=== PATIENT | male | born 1950 | race Caucasian/White ===

== ENCOUNTER 2016-09-03 17:21 | Inpatient (IN) | payer MEDICARE ==
--- NOTE | 2016-09-03 17:38 | ED ---
General Adult HPI - General Chief complaint: Recheck/Abnormal Lab/Rx Stated complaint: Abnormal Labs Time Seen by Provider: 09/03/16 17:25 Source: EMS, RN notes reviewed Mode of arrival: EMS Limitations: no limitations - History of Present Illness Initial comments: This is a 66-year-old male who presents to the emergency department with a past medical history significant for anemia. Patient also states she's had some adenopathy in his chest before but they have yet been able to figure out what the cause is. Patient states she also has not been able to figure out the cause of his anemia. Patient comes in to [facility] today because he was feeling weak and nauseated. [facility] did some lab work on him and x-rays and found that he had increased lymphadenopathy and an increasing mass in his left upper lobe and they wanted him to be evaluated further down here by a flight engineer oncologist. Patient had blood work done at [facility] and that was sent with him. Patient currently is symptom free. He states as long as he stays still he is not short of breath and does not have any pain. - Related Data Allergies Allergy/AdvReac Type Severity Reaction Status Date / Time No Known Allergies Allergy Verified 09/03/16 17:31 Review of Systems ROS Statement: Those systems with pertinent positive or pertinent negative responses have been documented in the HPI. ROS Other: All systems not noted in ROS Statement are negative. Past Medical History Past Medical History: Atrial Fibrillation Additional Past Medical History / Comment(s): Pulmonary fibrosis, myelodysplastic syndrome, hemachromatosis. History of Any Multi-Drug Resistant Organisms: None Reported Additional Past Surgical History / Comment(s): Pacemaker 07/2016 Smoking Status: Never smoker Past Alcohol Use History: None Reported Past Drug Use History: None Reported General Exam - General Exam Comments Initial Comments: GENERAL: Patient is well-developed and well-nourished. Patient is nontoxic and well- hydrated and is in no acute distress. ENT: Neck is soft and supple. No significant lymphadenopathy is noted. Oropharynx is clear. Moist mucous membranes. Neck has full range of motion without eliciting any pain. EYES: The sclera were anicteric and conjunctiva were pink and moist. Extraocular movements were intact and pupils were equal round and reactive to light. Eyelids were unremarkable. PULMONARY: Unlabored respirations. Good breath sounds bilaterally. No audible rales rhonchi or wheezing was noted. CARDIOVASCULAR: There is a regular rate and rhythm without any murmurs gallops or rubs. ABDOMEN: Soft and nontender with normal bowel sounds. No palpable organomegaly was noted. There is no palpable pulsatile mass. SKIN: Skin appears pale NEUROLOGIC: Patient is alert and oriented x3. Cranial nerves II through XII are grossly intact. Motor and sensory are also intact. Normal speech, volume and content. Symmetrical smile. MUSCULOSKELETAL: Normal extremities with adequate strength and full range of motion. Minimal edema LYMPHATICS: No significant lymphadenopathy is noted PSYCHIATRIC: Normal psychiatric evaluation. Normal interpersonal interactions appears functionally intact in deals appropriately with others. No signs of depression. No signs of anxiety. Limitations: no limitations Course Vital Signs 09/03/16 17:25 Temperature 96.9 F L Pulse Rate 70 Respiratory 18 Rate Blood Pressure 130/76 O2 Sat by Pulse 98 Oximetry Disposition Clinical Impression: Mediastinal adenopathy, Mass of upper lobe of left lung, Anemia, Generalized weakness Disposition: ADMITTED IP TO THIS HOSP Referrals: Ortega Kuhn MD [Primary Care Provider] - 1-2 days Time of Disposition: 17:39
[2016-09-03] MEDS ORDERED: SODIUM CHLORIDE 0.9% 1,000 ML IV ONE (17:40)
[2016-09-03] MEDS ORDERED: MORPHINE SULFATE 2 MG/ML SYRINGE IVP PRN (19:42)
[2016-09-03] MEDS ORDERED: TEMAZEPAM 15 MG CAP PO PRN (20:32)
[2016-09-03] MEDS ORDERED: HYDROcodone/APAP 5-325MG 1 EACH TAB PO PRN (20:32)
--- NOTE | 2016-09-03 21:24 | XR ---
EXAMINATION TYPE: XR chest 1V portable DATE OF EXAM: 09/03/2016 9:15 PM COMPARISON: NONE HISTORY: Lymphoma. Chest pain TECHNIQUE: Single frontal view of the chest is obtained. FINDINGS: There is no focal air space opacity, pleural effusion, or pneumothorax seen. The cardiac silhouette mildly enlarged. Tortuosity of the ascending thoracic aorta contributes to mediastinal wid ening as this patient rotation. Dual lead left-sided cardiac device is present. The osseous structure s are intact. IMPRESSION: 1. No acute pulmonary process. 2. Superior mediastinal widening is likely attributable to a ascending thoracic aorta tortuosity/ecta colette and patient rotation. If there is clinical concern repeat chest radiograph with improved position ing could be performed.
[2016-09-03] MEDS: DIGOXIN 125 MCG TAB PO SCH (21:30)
[2016-09-04 07:36] LABS: Amorphous Sediment,Urine Rare /hpf; Appearance,Urine Turbid (Clear); Bilirubin,Urine 1+ (Negative); Glucose,Urine (UA) Trace (Negative); Ketones,Urine Negative (Negative); Leukocyte Esterase,Urine Trace (Negative); Mucus,Urine Rare /hpf; Nitrite,Urine Negative (Negative); PH, Urine 5.5 (5.0-8.0); Particle Count 55508; Protein,Urine 3+ (Negative); RBC,Urine 60 /hpf (0-5); Specific Gravity,Urine 1.017 (1.001-1.035); Squamous Epithelial Cell,Urine 1 /hpf (0-4); UA Billing (MACRO vs. MICRO) MICRO; Urobilinogen,Urine <2.0 mg/dL (<2.0); WBC,Urine 32 /hpf (0-5)
[2016-09-04] MEDS ORDERED: ARANESP IJ SCH ×2 (08:00→12:00)
[2016-09-04] MEDS: PANTOPRAZOLE 40 MG TABLET PO SCH (08:50)
[2016-09-04 09:00] LABS: Anisocytosis Moderate; Basophils % (A) 0 %; CH 27.9; CHCM 29.6; Eosinophils % (A) 0 %; HCT 27.9 % (39.0-53.0); HDW 3.25; HGB 8.4 gm/dL (13.0-17.5); Hypochromasia Marked; Luc # (Auto) 0.05; Luc % (Auto) 1; Lymphocytes # (A) 0.6 k/uL (1.0-4.8); Lymphocytes % (A) 10 %; MCH 28.1 pg (25.0-35.0); MCV 93.7 fL (80.0-100.0); Macrocytosis Slight; Mean Platelet Volume 8.1; Monocytes # (A) 0.2 k/uL (0-1.0); Monocytes % (A) 3 %; Neutrophils # (A) 5.1 k/uL (1.3-7.7); Neutrophils % (A) 86 %; RBC 2.98 m/uL (4.30-5.90); RDW 22.2 % (11.5-15.5); WBC 5.9 k/uL (3.8-10.6); WBC (Perox) 5.24
[2016-09-04 09:45] LABS: INR 4.7 (<1.1); Prothrombin Time 46.4 sec (9.0-12.0)
[2016-09-04 09:48] LABS: Calcium 7.6 mg/dL (8.4-10.2); Potassium 5.4 mmol/L (3.5-5.1); Total Bilirubin 0.7 mg/dL (0.2-1.3); Total Protein 7.3 g/dL (6.3-8.2)
[2016-09-04 10:26] VITALS: BMI 35.4
--- NOTE | 2016-09-04 10:37 | HP ---
DATE OF ADMISSION: Chief complaints are weakness, vomiting and chills. HISTORY OF PRESENT ILLNESS: This 66-year-old gentleman with a past medical history of multiple medical problems including atrial fibrillation, history of myelodysplastic syndrome, history of amiodarone and pulmonary toxicity and pulmonary fibrosis, which was diagnosed after a lung biopsy followed by Dr. Kuhn in the outpatient setting, was also seeing an oncologist in [place] for myelodysplastic syndrome. The patient was admitted recently to [facility] with multiple complications and limited lymphedema was suspected and also a right upper lobe shadow was suspected also, but patient continues to have fever and chills and also symptoms of tiredness and weakness. Patient was in [facility] and the [facility] CAT scan showed significant increase in the superior mediastinal adenopathy and no new nodular lesion in the lungs and the patient was directly transferred to [facility] for further evaluation and treatment apparently because there were no beds in [facility]. There is no history of fever, chills or rigors. There is no history of headache, loss of consciousness or seizures at this time. The patient has seen Dr. Siddiqui previously and was treated with steroids with significant improvement according to him. PAST MEDICAL HISTORY: History of atrial fibrillation, history of pulmonary fibrosis, myelodysplastic syndrome, hemochromatosis, history of pacemaker. Medications prior to admission include: 1. Aranesp 1 injection q.14 days. 2. Coumadin 2.5 mg daily. 3. Vitamin B 2000 mg subQ monthly. 4. Digoxin 125 mcg p.o. daily. Allergies are none. FAMILY HISTORY: No history of heart disease or strokes in the family. SOCIAL HISTORY: No history of smoking, no history of alcohol intake. REVIEW OF SYSTEMS: ENT: No diminishing hearing. No diminished vision. CARDIOVASCULAR: As mentioned earlier. RESPIRATORY: As mentioned earlier. GI: No nausea. : No dysuria. NERVOUS SYSTEM: No numbness or weakness. ALLERGY/IMMUNOLOGY: No asthma or hayfever. MUSCULOSKELETAL: As mentioned earlier. HEMATOLOGY: No history of anemia. ENDOCRINE: No history of diabetes or hypothyroidism. CONSTITUTIONAL: As mentioned earlier. DERMATOLOGY: Negative. RHEUMATOLOGY: Negative. PSYCHIATRY: As mentioned earlier. PHYSICAL EXAM: Patient is alert and oriented x3. Pulse 70, blood pressure 135/80, respirations 16, temperature is 97.3, pulse ox 100% on 2 L. HEENT: Conjunctive normal. NECK: No jugular venous distension. CARDIOVASCULAR: S1, S2, muffled. RESPIRATORY: Breath sounds diminished at the bases. A few scattered rhonchi, no crackles. Abdomen is soft, obese, nontender. No mass palpable. LEGS: No edema, no swelling. NERVOUS SYSTEM: Higher functions as mentioned earlier. Moves all 4 limbs, no focal motor deficits. LYMPHATICS: No lymph node enlargement in the neck, axillae or groin. SKIN: No ulcers, rash, bleeding. Labs are pending at this time. The last from [place] [facility] shows the EKG paced rhythm. hemoglobin is 8.2, and MCV is 90. Other labs noted. ASSESSMENT: 1. Increase in the superior mediastinal lymphadenopathy as well as right upper lobe lesions, rule out pneumonia or metastatic malignancy or lymphoma. 2. Urinary tract infection, possibly. 3. History of myelodysplastic syndrome. 4. Anemia secondary to myelodysplastic syndrome. 5. Atrial fibrillation, chronic, intermittent. 6. Status post pacemaker. 7. Coumadin monitoring. 8. Hemochromatosis. 9. 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 10. Leukopenia. 11. Obesity with a body mass index of 35.4. RECOMMENDATION AND DISCUSSION: In this 66-year-old gentleman who presented with multiple complex medical issues, will monitor the patient closely. Continue with the current medication and symptomatic treatment. Recommend repeat labs and we will recommend evaluation by Dr. Lorenz and as well as Dr. Siddiqui. Otherwise, we will continue to monitor for possible lung biopsy versus a bronchoscopy. The prognosis guarded because of multiple complex medical issues. Further recommendations to follow. Will also obtain the old records as well. See orders for details. Discussed with the family at length. A copy of this will be forwarded to Dr. Kuhn who is the primary physician. now. Etiology for increasing lymphadenopathy and the lung lesions are not clear at this time. MTDD
--- NOTE | 2016-09-04 11:12 | P.CNPUL ---
History of Present Illness Consult date: 09/04/16 Reason for consult: dyspnea History of present illness: 66-year-old male patient with known history of hemachromatosis and mild dysplastic syndrome and previous history of mediastinal lymphadenopathy who was hospitalized for nausea and generalized weakness. The patient also reported fatigue and some increased shortness of breath. Note that the patient has an oncologist and he was being treated by a program host oncologist the [facility]. No records are available regarding his previous diagnosis or evaluations and treatments and the patient and his are not aware of the details of previous treatments. In short, the patient has had history of hemachromatosis. He reports a history of Salmonella bacteremia back in March 2016 and he was treated appropriately. He was also noted to have mediastinal lymphadenopathy. Apparently series of CAT scans were done including CAT scans from 07/12/2011, 05/14/2016 and 09/03/2016. The most recent CAT scan that was done on 09/03/2016 showed significant progression of the mediastinal lymphadenopathy compared to the prior exams as well as interval development of bilateral pulmonary nodules that are somewhat larger in the left upper lobe lingular segment. This raises suspicion for lymphoma. Sarcoidosis felt to be less likely. Primary lung cancer is felt to be less likely. The patient has no cough or sputum production. He has some mild exertional dyspnea. No 70 DVTs or pulmonary embolism. No hemoptysis. No pleurisy. His blood work from [facility] indicated anemia with a hemoglobin of 8.2. The patient is on long-term articulation regarding chronic atrial fibrillation fibrillation and his INR is 4.7. He has also chronic renal failure with a creatinine of 2.4 at baseline. He is pulse oxing 98% on room air. Review of Systems 12 point review of system was done and the positive findings are almost above in history of present illness All systems: negative Constitutional: Denies chills, Denies fever Eyes: denies blurred vision, denies pain Ears, nose, mouth and throat: Denies headache, Denies sore throat Cardiovascular: Denies chest pain, Denies shortness of breath Respiratory: Reports dyspnea, Denies cough Gastrointestinal: Reports nausea, Reports vomiting, Denies abdominal pain, Denies diarrhea Musculoskeletal: Denies myalgias Integumentary: Denies pruritus, Denies rash Neurological: Denies numbness, Denies weakness Psychiatric: Denies anxiety, Denies depression Endocrine: Denies fatigue, Denies weight change Past Medical History Past Medical History: Atrial Fibrillation Additional Past Medical History / Comment(s): History of mediastinal lymphadenopathy, hemachromatosis, mild dysplastic syndrome, chronic atrial fibrillation, chronic renal failure, nephrolithiasis, cataracts, chronic anemia , 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 History of Any Multi-Drug Resistant Organisms: None Reported Additional Past Surgical History / Comment(s): Pacemaker 07/2016, rt knee arthrosocpy, lung bx Past Anesthesia/Blood Transfusion Reactions: No Reported Reaction Additional Past Anesthesia/Blood Transfusion Reaction / Comment(s): blood transfusion-no reaction Past Psychological History: No Psychological Hx Reported Smoking Status: Never smoker Past Alcohol Use History: None Reported Past Drug Use History: None Reported - Past Family History Mother Family Medical History: CVA/TIA Father Family Medical History: CVA/TIA Medications and Allergies Home Medications Medication Instructions Recorded Confirmed Type Aranesp (Unknown Dose) 1 injection IJ Q14D 09/03/16 09/03/16 History Cyanocobalamin [Vitamin B-12 1,000 mcg SQ QMONTH 09/03/16 09/03/16 History Injection] Digoxin [Digitek] 125 mcg PO DAILY 09/03/16 09/03/16 History Warfarin [Coumadin] 2.5 mg PO DAILY 09/03/16 09/03/16 History Allergies Allergy/AdvReac Type Severity Reaction Status Date / Time No Known Allergies Allergy Verified 09/03/16 18:09 Physical Exam Vitals: Vital Signs Temp Pulse Pulse Resp BP BP Pulse Ox 09/04/16 07:00 97.1 F L 71 16 149/85 100 09/03/16 21:40 97.3 F L 70 16 125/76 98 09/03/16 19:00 97.3 F L 70 16 135/80 100 09/03/16 18:19 96.8 F L 70 18 107/65 96 09/03/16 17:25 96.9 F L 70 18 130/76 98 Intake and Output 09/03/16 09/04/16 09/04/16 22:59 06:59 14:59 Intake Total 450 Balance 450 Intake: Oral 450 Other: Weight 108.862 kg 108.862 kg Patient Weight 09/05/16 06:59 Weight 108.862 kg The patient appeared well nourished and normally developed. Vital signs as documented. Head exam is unremarkable. No scleral icterus or corneal arcus noted. Neck is without jugular venous distension, thyromegaly, or carotid bruits. Carotid upstrokes are brisk bilaterally. Lungs are clear to auscultation and percussion. Cardiac exam reveals the PMI to be normally sized and situated. Rhythm is regular. First and second heart sounds normal. No murmurs, rubs or gallops. Abdominal exam reveals normal bowel sounds, no masses , no organomegaly and no aortic enlargement. Extremities are nonedematous and both femoral and pedal pulses are normal. Results - Laboratory Findings CBC and BMP: 09/04/16 08:30 09/04/16 08:30 PT/INR, D-dimer PT 46.4 sec (9.0-12.0) H 09/04/16 08:30 INR 4.7 (<1.1) 09/04/16 08:30 Abnormal lab findings: Abnormal Labs 09/04/16 09/04/16 09/04/16 03:00 08:30 08:30 RBC 2.98 L Hgb 8.4 L Hct 27.9 L MCHC 30.0 L RDW 22.2 H Lymphocytes # 0.6 L PT 46.4 H Potassium Carbon Dioxide BUN Creatinine Glucose Calcium Albumin Urine Protein 3+ H Urine Glucose (UA) Trace H Urine Blood Large H Urine Bilirubin 1+ H Ur Leukocyte Esterase Trace H Urine RBC 60 H Urine WBC 32 H Amorphous Sediment Rare H Hyaline Casts 63 H Urine Mucus Rare H 09/04/16 08:30 RBC Hgb Hct MCHC RDW Lymphocytes # PT Potassium 5.4 H Carbon Dioxide 19 L BUN 49 H Creatinine 3.81 H Glucose 144 H Calcium 7.6 L Albumin 2.9 L Urine Protein Urine Glucose (UA) Urine Blood Urine Bilirubin Ur Leukocyte Esterase Urine RBC Urine WBC Amorphous Sediment Hyaline Casts Urine Mucus - Diagnostic Findings CT scan - chest: image reviewed Assessment and Plan Plan: Assessment 1 extensive mediastinal lymphadenopathy and bilateral pulmonary nodules the largest being present in the left upper lobe lingular segment measuring 2 cm in size. Smaller nodules are scattered in the right lower lobe and the left lower lobe. Possibilities include lymphoma in the setting of chronic mild dysplastic syndrome. Sarcoidosis felt to be less likely. Lung cancer is felt to be less likely. 2 myelodysplastic syndrome 3 hemachromatosis 4 chronic atrial fibrillation 5 history of amiodarone pulmonary toxicity 6 chronic anemia 7 chronic renal failure with a component of acute on top of chronic renal insufficiency/acute kidney injury Plan The mediastinal lymphadenopathy is concerning. Based on the clinical history and the suspected differential diagnosis, I think it's best as the patient undergoes a anti-mediastinoscopy and biopsy of one of the mediastinal lymph nodes to establish a tissue diagnosis. This will give enough tissue to diagnose any form of hematologic disorders including possibility of lymphoma. Bronchoscopy and transbronchial needle aspirate may not give us adequate tissue sample to make it final diagnosis. Other conditions within the differential diagnosis can be also diagnosed within the anterior medial cystoscopy. For that reason, I would suggest a thoracic surgery consultation for this patient. He also needs to be seen by hematology oncology. We'll continue to follow.
[2016-09-04] MEDS ORDERED: DARBEPOETIN ALFA 200 MCG/0.4 ML SYRINGE SQ SCH (12:00)
--- NOTE | 2016-09-04 18:03 | PN ---
DATE OF SERVICE: 09/04/2016 This 66-year-old gentleman admitted with superior mediastinal lymphadenopathy as well as right upper lung lesion is being closely monitored. Patient has a UTI also. The patient had a prolonged history of myelodysplastic syndrome. Hemoglobin is 8.4 at this time. The patient also had renal failure with creatinine up to 3.84. UA shows multiple abnormalities also. Past medical history reviewed. REVIEW OF SYSTEMS: CARDIOVASCULAR SYSTEM: No angina, palpitations. RESPIRATORY SYSTEM: As mentioned earlier. GI: As mentioned earlier. : As mentioned earlier. NERVOUS SYSTEM: No numbness or weakness. Current medications are reviewed and include: 1. [place] 5 mg q.6 p.r.n. 2. Xanax 0.25 t.i.d. p.r.n. 3. Lanoxin 125 mcg p.o. at bedtime. 4. Morphine sulfate. 5. Protonix. 6. Restoril. 7. Coumadin. PHYSICAL EXAMINATION: Patient is alert and oriented x3. Pulse 71, blood pressure 149/85, respiration 16, temperature 97.1, pulse ox 100% on 2 L. HEENT: Conjunctivae normal. NECK: No jugular venous distention. CARDIOVASCULAR SYSTEM: S1, S2 muffled. RESPIRATORY SYSTEM: Breath sounds diminished at the bases. A few scattered rhonchi. ABDOMEN: Soft, nontender. No mass palpable. LEGS: No edema. No swelling. NERVOUS SYSTEM: No focal deficit. LABS: WBC 5.3, hemoglobin 8.4. INR is 4.7. Potassium 5.4. Creatinine 3.81. ASSESSMENT: 1. Superior mediastinal lymphadenopathy as well as right upper lobe lesion; lymphoma; rule out metastatic malignancy. 2. Urinary tract infection possibly. 3. History of myelodysplastic syndrome. 4. Anemia secondary to myelodysplastic syndrome. 5. Atrial fibrillation, chronic, intermittent. 6. Status post pacemaker. 7. Mild Coumadin coagulopathy. 8. Coumadin monitoring. 9. History of hemochromatosis. 10. 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 11. History of leukopenia. 12. Obesity with body mass index of 35.4. 13. Possible acute on chronic kidney disease, stage IV. 14. Hyperkalemia. 15. Hypoalbuminemia with mild to moderate protein-calorie malnutrition. RECOMMENDATIONS AND DISCUSSION: In this 66-year-old gentleman who presented with multiple complex medical issues, we will monitor the patient closely, continue the current medication, continue with symptomatic treatment. I will hold the Coumadin at this time and monitor PT and INR closely. Other than, continue the rest of the medications. I would also recommend evaluation by Dr. Hackett and Dr. Puentes. Further recommendations to follow. The patient will need a superior mediastinal biopsy. Cardiothoracic also may be consulted.
[2016-09-04] MEDS ORDERED: PHYTONADIONE ORAL 5 MG/5 ML ORAL.SYRG PO STA (18:33)
--- NOTE | 2016-09-04 18:36 | P.CONS ---
History of Present Illness - Reason for Consult Consult date: 09/04/16 adenopathy and anemia Requesting physician: Frank Napoles - Chief Complaint weak, nauseated - History of Present Illness Mr. Cochran is a very pleasant male pt who was seen at [facility] with c/ o weakness and nausea, CT scan was done and compared to recent CT scans done this year and there was a noted increase in the size of the lymph nodes in the mediastinum also, he has been persistently anemic so, pt was brought to [facility] for further work up. 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 He was started on aranesp every other week with out much success, no other treatment had been discussed yet, his last f/u was 1 month ago. He has a history of pulmonary fibrosis diagnosed from open lung biopsy about 20 years ago. Pt denies lymph node swellings in the neck, axilla or groin, no dysphagia, sweats, wt. loss, changes in appetite, bowel or bladder habits. 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 History of Any Multi-Drug Resistant Organisms: None Reported Additional Past Surgical History / Comment(s): Pacemaker 07/2016, rt knee arthrosocpy, lung bx Past Anesthesia/Blood Transfusion Reactions: No Reported Reaction Additional Past Anesthesia/Blood Transfusion Reaction / Comm: blood transfusion- no reaction Past Psychological History: No Psychological Hx Reported Smoking Status: Never smoker Past Alcohol Use History: None Reported Past Drug Use History: None Reported - Past Family History Mother Family Medical History: CVA/TIA Father Family Medical History: CVA/TIA Medications and Allergies Home Medications Medication Instructions Recorded Confirmed Type Aranesp (Unknown Dose) 1 injection IJ Q14D 09/03/16 09/03/16 History Cyanocobalamin [Vitamin B-12 1,000 mcg SQ QMONTH 09/03/16 09/03/16 History Injection] Digoxin [Digitek] 125 mcg PO DAILY 09/03/16 09/03/16 History Warfarin [Coumadin] 2.5 mg PO DAILY 09/03/16 09/03/16 History Allergies Allergy/AdvReac Type Severity Reaction Status Date / Time No Known Allergies Allergy Verified 09/03/16 18:09 Physical Exam Vitals: Vital Signs Temp Pulse Resp BP Pulse Ox 09/04/16 15:00 97.6 F 70 16 129/75 95 09/04/16 12:22 100 09/04/16 07:00 97.1 F L 71 16 149/85 100 09/03/16 21:40 97.3 F L 70 16 125/76 98 09/03/16 19:00 97.3 F L 70 16 135/80 100 Intake and Output 09/04/16 09/04/16 09/04/16 06:59 14:59 22:59 Intake Total 780 Balance 780 Intake: IV 180 Sodium Chloride 0.9% 1, 180 000 ml @ 20 mls/hr IV . Q24H ONE Rx#:[id number] Oral 600 Other: Weight 108.862 kg Patient Weight 09/05/16 06:59 Weight 108.862 kg - Constitutional General appearance: cooperative, no acute distress, obese - EENT Eyes: anicteric sclerae, EOMI, PERRLA, normal appearance ENT: hearing grossly normal, normal oropharynx - Neck Neck: no lymphadenopathy - Respiratory Respiratory: bilateral: CTA - Cardiovascular Heart sounds: normal: S1, S2 leg Peripheral Edema: bilateral: None - Gastrointestinal General gastrointestinal: no absent bowel sounds, no decreased bowel sounds, no distended, no hepatomegaly, no hyperactive bowel sounds, normal bowel sounds, no organomegaly, no rigid, no scaphoid, soft, no splenomegaly, no tenderness, no umbilical hernia, no ventral hernia - Neurologic Neurologic: CNII-XII intact - Musculoskeletal Musculoskeletal: strength equal bilaterally - Psychiatric Psychiatric: A&O x's 3, appropriate affect, intact judgment & insight Results CBC & Chem 7: 09/04/16 08:30 09/04/16 08:30 Labs: Abnormal Lab Results - Last 24 Hours (Table) 09/04/16 09/04/16 09/04/16 Range/Units 03:00 08:30 08:30 RBC 2.98 L (4.30-5.90) m/uL Hgb 8.4 L (13.0-17.5) gm/dL Hct 27.9 L (39.0-53.0) % MCHC 30.0 L (31.0-37.0) g/dL RDW 22.2 H (11.5-15.5) % Lymphocytes # 0.6 L (1.0-4.8) k/uL PT 46.4 H (9.0-12.0) sec Potassium (3.5-5.1) mmol/L Carbon Dioxide (22-30) mmol/L BUN (9-20) mg/dL Creatinine (0.66-1.25) mg/dL Glucose (74-99) mg/dL Calcium (8.4-10.2) mg/dL Albumin (3.5-5.0) g/dL Urine Protein 3+ H (Negative) Urine Glucose (UA) Trace H (Negative) Urine Blood Large H (Negative) Urine Bilirubin 1+ H (Negative) Ur Leukocyte Esterase Trace H (Negative) Urine RBC 60 H (0-5) /hpf Urine WBC 32 H (0-5) /hpf Amorphous Sediment Rare H (None) /hpf Hyaline Casts 63 H (0-2) /lpf Urine Mucus Rare H (None) /hpf // Range/Units 08:30 RBC (4.30-5.90) m/uL Hgb (13.0-17.5) gm/dL Hct (39.0-53.0) % MCHC (31.0-37.0) g/dL RDW (11.5-15.5) % Lymphocytes # (1.0-4.8) k/uL PT (9.0-12.0) sec Potassium 5.4 H (3.5-5.1) mmol/L Carbon Dioxide 19 L (22-30) mmol/L BUN 49 H (9-20) mg/dL Creatinine 3.81 H (0.66-1.25) mg/dL Glucose 144 H (74-99) mg/dL Calcium 7.6 L (8.4-10.2) mg/dL Albumin 2.9 L (3.5-5.0) g/dL Urine Protein (Negative) Urine Glucose (UA) (Negative) Urine Blood (Negative) Urine Bilirubin (Negative) Ur Leukocyte Esterase (Negative) Urine RBC (0-5) /hpf Urine WBC (0-5) /hpf Amorphous Sediment (None) /hpf Hyaline Casts (0-2) /lpf Urine Mucus (None) /hpf Microbiology - Last 24 Hours (Table) 09/04/16 03:00 Urine Culture - Preliminary Urine,Voided Comments: Kiley scan reports were reviewed Assessment and Plan (1) Anemia Narrative/Plan: Will try to contact pt Hem/Onc in [place] for labs info. Conservative transfusion to keep Hgb>7, pt aranesp has already been ordered. Status: Chronic (2) Mediastinal adenopathy Narrative/Plan: Reviewed Pulmonary notes, agree with plans for LN excision, CT AP ordered for evaluation. Status: Acute (3) Coagulopathy Narrative/Plan: INR elevated, hold coumadin, vit K will be ordered, INR daily. Status: Acute
[2016-09-04] MEDS: IOHEXOL 350 MG/ML 25 ML BOTTLE (ORAL USE) PO PRN ×2 (20:01→20:52)
[2016-09-04] MEDS: DIGOXIN 125 MCG TAB PO SCH (20:02)
--- NOTE | 2016-09-04 22:37 | CT ---
EXAMINATION TYPE: CT abdomen pelvis wo con DATE OF EXAM: 09/04/2016 9:41 PM HISTORY: R/O metastatic disease. Increasing mediastinal adenopathy, abnormal recent CT chest study. CT DLP: 1178.8 mGycm. Automated Exposure Control for Dose Reduction was Utilized. TECHNIQUE: CT scan of the abdomen and pelvis is performed with oral but without IV contrast. COMPARISON: Outside chest CT from yesterday. FINDINGS: Within the limitations of a non-contrast study, the following observations are made. LUNG BASES: There is redemonstration of cardiomegaly with right-sided pacemaker. There are redemonstr ation of tiny left greater than right pleural effusions and associated compressive atelectasis in bot h lung bases. LIVER/GB: Liver is somewhat small in size. PANCREAS: There is fairly prominent fat replaced atrophy of the pancreas. SPLEEN: Splenomegaly is seen measuring 15.2 cm on long axis on coronal image 64. ADRENALS: No significant abnormality is seen. KIDNEYS: Mild perinephric fat stranding bilaterally is nonspecific finding and may be on basis of pro duct of chronic medical renal disease. Bladder is poorly distended and thus suboptimally evaluated. BOWEL: The oral contrast reaches level of terminal ileum. There is slightly prominent contrast and de bris filled stomach. Duodenal sweep is not suspiciously dilated. There is no suspicious small or larg e bowel dilatation. There are occasional diverticula seen scattered throughout the colon. There is no CT evidence for acute diverticulitis. There is mild prominence of fecal material in the right colon. Consider mild proximal colonic fecal stasis. GENITAL ORGANS: No gross abnormality seen. LYMPH NODES: No greater than 1cm abdominal or pelvic lymph nodes are appreciated. OSSEOUS STRUCTURES: There is some multilevel spurring in the spine. OTHER: Tiny amount of free fluid in pelvis is noted on axial image 76. IMPRESSION: Splenomegaly is noted. No suspicious adenopathy is seen to suggest neoplastic or lymphoma involvement below the diaphragm to correlate with recent outside chest CT otherwise.
[2016-09-05 09:31] LABS: Anisocytosis Moderate; Basophils % (A) 0 %; CH 27.5; CHCM 28.9; Eosinophils % (A) 0 %; HGB 8.2 gm/dL (13.0-17.5); Hypochromasia Marked; Luc # (Auto) 0.11; Luc % (Auto) 1; Lymphocytes # (A) 0.8 k/uL (1.0-4.8); Lymphocytes % (A) 6 %; MCH 27.7 pg (25.0-35.0); MCHC 29.2 g/dL (31.0-37.0); MCV 94.8 fL (80.0-100.0); Macrocytosis Slight; Monocytes # (A) 0.4 k/uL (0-1.0); Monocytes % (A) 3 %; Neutrophils # (A) 13.3 k/uL (1.3-7.7); Neutrophils % (A) 91 %; RBC 2.95 m/uL (4.30-5.90); RDW 22.6 % (11.5-15.5); WBC 14.6 k/uL (3.8-10.6); WBC (Perox) 15.02
[2016-09-05 09:35] LABS: INR 2.7 (<1.1); Prothrombin Time 26.3 sec (9.0-12.0)
[2016-09-05 10:06] LABS: Potassium 5.8 mmol/L (3.5-5.1); Total Bilirubin 0.6 mg/dL (0.2-1.3)
[2016-09-05] MEDS ORDERED: INSULIN REGULAR 100 UNIT/ML VIAL IV ONE (11:02)
[2016-09-05] MEDS: DEXTROSE 50%-WATER 50 ML SYRINGE IVP STA ×2 (12:05→12:06)
--- NOTE | 2016-09-05 12:07 | P.NPCON ---
History of Present Illness - Reason for Consult acute renal failure - History of Present Illness Reason for consultation: Acute kidney injury on chronic kidney disease History of present illness: Patient is a 66-year-old male seen in renal consultation for acute kidney injury on chronic kidney disease. Patient states he has history of hemochromatosis and was started on Jadenu which led to nephrotoxicity with creatinine level of greater than 5. The medication was subsequently discontinued and his renal function did improve but not to normal. The to the hospital with weakness and dyspnea. He is noted to have history of mediastinal lymphadenopathy in the past. He also has history of lung toxicity potentially pulmonary fibrosis from amiodarone in the past. Patient recently had a CAT scan done on 09/03/2016 which revealed significant progression of his mediastinal lymphadenopathy as well as bilateral pulmonary nodules. His creatinine earlier this week was 2.4 and is 3.8 now. He is not on any IV fluids at this time. He's currently nothing by mouth for potential mediastinoscopy. He admits to good urine output. No hematuria or dysuria. Denies any chest pain. Dyspnea is improved. Denies use of NSAIDs. No family history of renal disease. Hemodynamically stable. Vital signs are stable. General: The patient appeared well nourished and normally developed. HEENT: Head exam is unremarkable. Neck is without jugular venous distension. LUNGS: Lungs are clear to auscultation and percussion. Breath sounds decreased. HEART: Rate and Rhythm are regular. First and second heart sounds normal. No murmurs, rubs or gallops. ABDOMEN: Abdominal exam reveals normal bowel sounds. Non-tender and non- distended. No evidence of peritonitis. EXTREMITITES: No clubbing, cyanosis, or edema. 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 History of Any Multi-Drug Resistant Organisms: None Reported Additional Past Surgical History / Comment(s): Pacemaker 07/2016, rt knee arthrosocpy, lung bx Past Anesthesia/Blood Transfusion Reactions: No Reported Reaction Additional Past Anesthesia/Blood Transfusion Reaction / Comment(s): blood transfusion-no reaction Past Psychological History: No Psychological Hx Reported Smoking Status: Never smoker Past Alcohol Use History: None Reported Past Drug Use History: None Reported - Past Family History Mother Family Medical History: CVA/TIA Father Family Medical History: CVA/TIA Medications and Allergies Home Medications Medication Instructions Recorded Confirmed Type Aranesp (Unknown Dose) 1 injection IJ Q14D 09/03/16 09/03/16 History Cyanocobalamin [Vitamin B-12 1,000 mcg SQ QMONTH 09/03/16 09/03/16 History Injection] Digoxin [Digitek] 125 mcg PO DAILY 09/03/16 09/03/16 History Warfarin [Coumadin] 2.5 mg PO DAILY 09/03/16 09/03/16 History Allergies Allergy/AdvReac Type Severity Reaction Status Date / Time No Known Allergies Allergy Verified 09/03/16 18:09 Physical Exam Vitals: Vital Signs Temp Pulse Resp BP Pulse Ox 09/05/16 08:00 87 16 09/05/16 07:00 97.8 F 87 16 129/76 98 09/05/16 00:00 70 20 09/04/16 22:41 97.8 F 70 20 153/84 98 09/04/16 15:00 97.6 F 70 16 129/75 95 09/04/16 12:22 100 Intake and Output 09/04/16 09/05/16 09/05/16 22:59 06:59 14:59 Intake Total 1580 Balance 1580 Intake: IV 180 Sodium Chloride 0.9% 1, 180 000 ml @ 20 mls/hr IV . Q24H ONE Rx#:[id number] Oral 1400 Other: Voiding Method Toilet # Voids 1 Results - Lab Results Most recent lab results Calcium 8.0 mg/dL (8.4-10.2) L 09/05/16 07:53 09/05/16 07:53 09/05/16 07:53 Assessment and Plan Plan: Assessment: #1. Nonoliguric acute kidney injury mostly prerenal in nature secondary to poor oral intake. Will also rule out digoxin toxicity as well as urinary retention. No evidence of hydronephrosis. #2. Chronic kidney disease. Unclear as to what his baseline renal function is. His creatinine was 2.4 as of September 03. 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 #3. Mediastinal lymphadenopathy with pulmonary nodules. Questionable lymphoma. #4. Hyperkalemia secondary to acute kidney injury and metabolic acidosis. Digoxin toxicity can also be a contributor factor. #5. Metabolic acidosis secondary to acute kidney injury. Ex line #6. Anemia. Rule out iron deficiency. #7. History of atrial fibrillation. Rate controlled. Plan: Start normal saline to be run at 50 mL an hour. I will medically treat the hyperkalemia with 10 units of IV insulin with amp of D50. I will change her diet to a renal diet. Start oral sodium bicarbonate 1300 mg twice daily. Repeat potassium level at 6 PM today. Check iron studies. Check renal ultrasound. Check postvoid residual and to insert Esteban catheter if greater than 250 mL present. Follow-up urine culture. Thank you for the consultation. I will continue to follow the patient with you during his hospital stay.
[2016-09-05] MEDS: PANTOPRAZOLE 40 MG TABLET PO SCH (12:12)
[2016-09-05 12:29] LABS: % Iron Saturation 38.5 % (20-50)
[2016-09-05 13:13] LABS: Digoxin 0.7 ng/mL
[2016-09-05] MEDS: SODIUM CHLORIDE 0.9% 1,000 ML IV SCH (14:55)
[2016-09-05] MEDS: ALPRAZolam 0.25 MG TAB PO PRN ×2 (14:58→23:56)
--- NOTE | 2016-09-05 15:07 | US ---
EXAMINATION TYPE: US kidneys/renal and bladder DATE OF EXAM: 09/05/2016 2:04 PM COMPARISON: CT from yesterday. CLINICAL HISTORY: maykel. No pain. EXAM MEASUREMENTS: Right Kidney: 10.5 x 5.4 x 5.3 cm Left Kidney: 11.7 x 5.1 x 5.0 cm Right Kidney: wnl Left Kidney: wnl Bladder: Nondistended. Not well visualized. Patient states voiding before exam. Bilateral Jets not seen There is no evidence for hydronephrosis at this point in time. No nephrolithiasis is seen. No lamin s are identified. The urinary bladder is suboptimally evaluated as is collapsed in appearance. Bilat eral ureteral jets are not seen. IMPRESSION: No hydronephrosis is evident bilaterally.
[2016-09-05] MEDS ORDERED: PHYTONADIONE ORAL 5 MG/5 ML ORAL.SYRG PO STA (16:44)
[2016-09-05] MEDS: SODIUM BICARBONATE TAB 650 MG TAB PO SCH (20:52)
[2016-09-05] MEDS: DIGOXIN 125 MCG TAB PO SCH (20:52)
[2016-09-05] MEDS ORDERED: WARFARIN 2.5 MG TAB PO SCH (21:00)
[2016-09-06] MEDS: SODIUM CHLORIDE 0.9% 1,000 ML IV SCH (07:55)
[2016-09-06] MEDS: PANTOPRAZOLE 40 MG TABLET PO SCH (07:56)
[2016-09-06] MEDS: SODIUM BICARBONATE TAB 650 MG TAB PO SCH ×2 (07:57→21:24)
[2016-09-06 08:06] LABS: Anisocytosis Moderate; Basophils % (A) 0 %; CH 27.6; CHCM 29.4; Eosinophils # (A) 0.1 k/uL (0-0.7); Eosinophils % (A) 1 %; HCT 26.8 % (39.0-53.0); HDW 2.99; HGB 7.7 gm/dL (13.0-17.5); Hypochromasia Marked; Luc # (Auto) 0.16; Luc % (Auto) 2; Lymphocytes % (A) 11 %; MCH 26.9 pg (25.0-35.0); MCHC 28.7 g/dL (31.0-37.0); MCV 93.7 fL (80.0-100.0); Macrocytosis Slight; Mean Platelet Volume 8.7; Monocytes # (A) 0.7 k/uL (0-1.0); Monocytes % (A) 8 %; Neutrophils # (A) 7.2 k/uL (1.3-7.7); Neutrophils % (A) 79 %; RBC 2.85 m/uL (4.30-5.90); RDW 23.2 % (11.5-15.5); WBC 9.1 k/uL (3.8-10.6); WBC (Perox) 9.25
[2016-09-06 08:26] LABS: Calcium 7.5 mg/dL (8.4-10.2); Potassium 5.6 mmol/L (3.5-5.1); Total Protein 6.7 g/dL (6.3-8.2)
[2016-09-06 08:36] LABS: INR 1.4 (<1.1); Partial Thromboplastin Time 30.5 sec (22.0-30.0); Prothrombin Time 14.1 sec (9.0-12.0)
[2016-09-06] MEDS ORDERED: DEXTROSE 50%-WATER 50 ML SYRINGE IVP STA (09:40)
[2016-09-06] MEDS ORDERED: INSULIN REGULAR 100 UNIT/ML VIAL IV ONE (10:00)
[2016-09-06] MEDS ORDERED: SODIUM ACETATE 50 MEQ in WATER FOR INJECTION, STERILE 250 ML IV ONE (10:00)
--- NOTE | 2016-09-06 10:46 | P.PN ---
Subjective Patient is seen in follow-up for acute kidney injury on chronic kidney disease. Patient has chronic kidney disease with unclear baseline renal function. His creatinine this week on Saturday was 2.4. 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 His creatinine today is a little better at 3.64. Patient is sitting up in chair. Denies any chest pain or shortness of breath. No vomiting or diarrhea. Admits to good urine output. Vital signs are stable. General: The patient appeared well nourished and normally developed. HEENT: Head exam is unremarkable. Neck is without jugular venous distension. LUNGS: Lungs are clear to auscultation and percussion. Breath sounds decreased. HEART: Rate and Rhythm are regular. First and second heart sounds normal. No murmurs, rubs or gallops. ABDOMEN: Abdominal exam reveals normal bowel sounds. Non-tender and non- distended. No evidence of peritonitis. EXTREMITITES: No clubbing, cyanosis, or edema. Objective - Vital Signs Vital signs: Vital Signs Temp 98.4 F 09/06/16 07:00 Pulse 70 09/06/16 07:00 Resp 20 09/06/16 07:00 BP 115/59 09/06/16 07:00 Pulse Ox 95 09/06/16 07:00 Intake & Output 09/05/16 09/06/16 09/06/16 18:59 06:59 18:59 Intake Total 200 1890 240 Output Total 500 200 Balance 200 1390 40 Weight 108.862 kg Intake: Intake, IV Titration 200 850 Amount Sodium Chloride 0.9% 1, 200 850 000 ml @ 50 mls/hr IV . Q20H EVA Rx#:[id number] Oral 1040 240 Output: Urine 500 200 Other: Voiding Method Toilet Toilet # Voids 3 2 - Labs CBC & Chem 7: 09/06/16 07:32 09/06/16 07:32 Labs: Abnormal Lab Results - Last 24 Hours (Table) 09/05/16 09/05/16 09/06/16 Range/Units 07:53 17:59 07:32 RBC 2.85 L (4.30-5.90) m/uL Hgb 7.7 L (13.0-17.5) gm/dL Hct 26.8 L (39.0-53.0) % MCHC 28.7 L (31.0-37.0) g/dL RDW 23.2 H (11.5-15.5) % Plt Count 461 H (150-450) k/uL PT (9.0-12.0) sec APTT (22.0-30.0) sec Sodium (137-145) mmol/L Potassium 5.4 H (3.5-5.1) mmol/L Carbon Dioxide (22-30) mmol/L BUN (9-20) mg/dL Creatinine (0.66-1.25) mg/dL Calcium (8.4-10.2) mg/dL TIBC 234 L (261-462) ug/dL Albumin (3.5-5.0) g/dL 09/06/16 09/06/16 Range/Units 07:32 07:32 RBC (4.30-5.90) m/uL Hgb (13.0-17.5) gm/dL Hct (39.0-53.0) % MCHC (31.0-37.0) g/dL RDW (11.5-15.5) % Plt Count (150-450) k/uL PT 14.1 H (9.0-12.0) sec APTT 30.5 H (22.0-30.0) sec Sodium 135 L (137-145) mmol/L Potassium 5.6 H (3.5-5.1) mmol/L Carbon Dioxide 17 L (22-30) mmol/L BUN 71 H (9-20) mg/dL Creatinine 3.64 H (0.66-1.25) mg/dL Calcium 7.5 L (8.4-10.2) mg/dL TIBC (261-462) ug/dL Albumin 2.6 L (3.5-5.0) g/dL Microbiology - Last 24 Hours (Table) 09/04/16 03:00 Urine Culture - Final Urine,Voided Assessment and Plan Plan: Assessment: #1. Nonoliguric acute kidney injury mostly prerenal in nature secondary to poor oral intake. No evidence of hydronephrosis. Digoxin level normal. Proteinuria as well as blood present on urinalysis. Need to rule out GN. #2. Chronic kidney disease. Unclear as to what his baseline renal function is. His creatinine was 2.4 as of September 03. 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 #3. Mediastinal lymphadenopathy with pulmonary nodules. Questionable lymphoma. #4. Hyperkalemia secondary to acute kidney injury and metabolic acidosis. #5. Metabolic acidosis secondary to acute kidney injury. #6. Anemia. Iron replete. #7. History of atrial fibrillation. Rate controlled. Plan: Continue normal saline to be run at 50 mL an hour. I will medically treat the hyperkalemia with 10 units of IV insulin with amp of D50. Maintain renal diet. Maintain oral sodium bicarbonate 1300 mg twice daily. Repeat potassium level at 6 PM today. Repeat urinalysis. Quantify proteinuria. Check serologies including light chain analysis, urine immunofixation, BRUCE and complement levels. Patient will need to follow-up with a heating plant superintendent as an outpatient within 1-2 weeks of discharge.
--- NOTE | 2016-09-06 14:47 | P.GSCN ---
<June Thornton - Last Filed: 09/06/16 14:46> History of Present Illness Consult date: 09/06/16 Reason for Consult: Mediastinal lymphadenopathy, possible mediastinoscopy with lymph node biopsy. Requesting physician: Dionisio Lorenz History of present illness: This 58-year-old gentleman with a previous medical history of myelodysplastic syndrome, hemochromatosis, amiodarone-induced pulmonary fibrosis, anemia, chronic atrial fibrillation on daily Coumadin and digoxin, and possible chronic kidney disease presented to [facility] with generalized weakness, nausea , fatigue, increased shortness of breath. He had a CAT scan which revealed a significant increase in superior mediastinal lymphadenopathy. Apparently this lymphadenopathy has been followed by the patient's own oncologist, Dr. Gomez, out of [facility]. [facility] was unable to transfer him to [place] as they had no bed availability and he subsequently was transferred to [facility] for further workup. Cardiothoracic surgery was consulted by Dr. Lorenz for a mediastinoscopy with lymph node biopsy. Review of Systems 14 point review of systems was completed and was negative except as noted. 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 History of Any Multi-Drug Resistant Organisms: None Reported Additional Past Surgical History / Comment(s): Pacemaker 07/2016, rt knee arthrosocpy, lung bx Past Anesthesia/Blood Transfusion Reactions: No Reported Reaction Additional Past Anesthesia/Blood Transfusion Reaction / Comm: blood transfusion- no reaction Past Psychological History: No Psychological Hx Reported Smoking Status: Never smoker Past Alcohol Use History: None Reported Past Drug Use History: None Reported - Past Family History Mother Family Medical History: CVA/TIA Father Family Medical History: CVA/TIA Medications and Allergies Home Medications Medication Instructions Recorded Confirmed Type Aranesp (Unknown Dose) 1 injection IJ Q14D 09/03/16 09/03/16 History Cyanocobalamin [Vitamin B-12 1,000 mcg SQ QMONTH 09/03/16 09/03/16 History Injection] Digoxin [Digitek] 125 mcg PO DAILY 09/03/16 09/03/16 History Warfarin [Coumadin] 2.5 mg PO DAILY 09/03/16 09/03/16 History Allergies Allergy/AdvReac Type Severity Reaction Status Date / Time No Known Allergies Allergy Verified 09/03/16 18:09 Surgical - Exam Vital Signs Temp Pulse Resp BP Pulse Ox 96.9 F L 70 18 130/76 98 09/03/16 17:25 09/03/16 17:25 09/03/16 17:25 09/03/16 17:25 09/03/16 17:25 - General well developed, well nourished, no distress, no pain - Eyes PERRL, normal ocular movement - ENT no hearing loss - Neck no masses, trachea midline lymphadenopathy: absent - Respiratory normal expansion, normal respiratory effort, clear to auscultation - Cardiovascular Rhythm: regular Heart Sounds: normal: S1, S2 - Abdomen Abdomen: soft, non tender, bowel sounds - Genitourinary Deferred - Rectum Deferred - Integumentary no rash - Neurologic normal coordination, normal sensation - Musculoskeletal normal gait - Psychiatric oriented to time, oriented to person, oriented to place, speech is normal, memory intact Results - Labs 09/06/16 07:32 09/06/16 07:32 Abnormal Lab Results - Last 24 Hours (Table) 09/05/16 09/05/16 09/05/16 Range/Units 07:53 07:53 07:53 WBC 14.6 H (3.8-10.6) k/uL RBC 2.95 L (4.30-5.90) m/uL Hgb 8.2 L (13.0-17.5) gm/dL Hct 28.0 L (39.0-53.0) % MCHC 29.2 L (31.0-37.0) g/dL RDW 22.6 H (11.5-15.5) % Plt Count 496 H (150-450) k/uL Neutrophils # 13.3 H (1.3-7.7) k/uL Lymphocytes # 0.8 L (1.0-4.8) k/uL PT 26.3 H (9.0-12.0) sec APTT (22.0-30.0) sec Sodium 135 L (137-145) mmol/L Potassium 5.8 H (3.5-5.1) mmol/L Carbon Dioxide 18 L (22-30) mmol/L BUN 66 H (9-20) mg/dL Creatinine 3.77 H (0.66-1.25) mg/dL Glucose 100 H (74-99) mg/dL Calcium 8.0 L (8.4-10.2) mg/dL TIBC (261-462) ug/dL Albumin 2.8 L (3.5-5.0) g/dL 09/05/16 09/05/16 09/06/16 Range/Units 07:53 17:59 07:32 WBC (3.8-10.6) k/uL RBC 2.85 L (4.30-5.90) m/uL Hgb 7.7 L (13.0-17.5) gm/dL Hct 26.8 L (39.0-53.0) % MCHC 28.7 L (31.0-37.0) g/dL RDW 23.2 H (11.5-15.5) % Plt Count 461 H (150-450) k/uL Neutrophils # (1.3-7.7) k/uL Lymphocytes # (1.0-4.8) k/uL PT (9.0-12.0) sec APTT (22.0-30.0) sec Sodium (137-145) mmol/L Potassium 5.4 H (3.5-5.1) mmol/L Carbon Dioxide (22-30) mmol/L BUN (9-20) mg/dL Creatinine (0.66-1.25) mg/dL Glucose (74-99) mg/dL Calcium (8.4-10.2) mg/dL TIBC 234 L (261-462) ug/dL Albumin (3.5-5.0) g/dL 09/06/16 09/06/16 Range/Units 07:32 07:32 WBC (3.8-10.6) k/uL RBC (4.30-5.90) m/uL Hgb (13.0-17.5) gm/dL Hct (39.0-53.0) % MCHC (31.0-37.0) g/dL RDW (11.5-15.5) % Plt Count (150-450) k/uL Neutrophils # (1.3-7.7) k/uL Lymphocytes # (1.0-4.8) k/uL PT 14.1 H (9.0-12.0) sec APTT 30.5 H (22.0-30.0) sec Sodium 135 L (137-145) mmol/L Potassium 5.6 H (3.5-5.1) mmol/L Carbon Dioxide 17 L (22-30) mmol/L BUN 71 H (9-20) mg/dL Creatinine 3.64 H (0.66-1.25) mg/dL Glucose (74-99) mg/dL Calcium 7.5 L (8.4-10.2) mg/dL TIBC (261-462) ug/dL Albumin 2.6 L (3.5-5.0) g/dL Microbiology - Last 24 Hours (Table) 09/04/16 03:00 Urine Culture - Final Urine,Voided Diabetes panel 09/05/16 09/05/16 09/06/16 Range/Units 07:53 17:59 07:32 Sodium 135 L 135 L (137-145) mmol/L Potassium 5.8 H 5.4 H 5.6 H (3.5-5.1) mmol/L Chloride 104 106 (98-107) mmol/L Carbon Dioxide 18 L 17 L (22-30) mmol/L BUN 66 H 71 H (9-20) mg/dL Creatinine 3.77 H 3.64 H (0.66-1.25) mg/dL Glucose 100 H 86 (74-99) mg/dL Calcium 8.0 L 7.5 L (8.4-10.2) mg/dL AST 24 17 (17-59) U/L ALT 21 21 (21-72) U/L Alkaline Phosphatase 107 95 (38-126) U/L Total Protein 7.0 6.7 (6.3-8.2) g/dL Albumin 2.8 L 2.6 L (3.5-5.0) g/dL Calcium panel 09/05/16 09/06/16 Range/Units 07:53 07:32 Calcium 8.0 L 7.5 L (8.4-10.2) mg/dL Albumin 2.8 L 2.6 L (3.5-5.0) g/dL Pituitary panel 09/05/16 09/05/16 09/06/16 Range/Units 07:53 17:59 07:32 Sodium 135 L 135 L (137-145) mmol/L Potassium 5.8 H 5.4 H 5.6 H (3.5-5.1) mmol/L Chloride 104 106 (98-107) mmol/L Carbon Dioxide 18 L 17 L (22-30) mmol/L BUN 66 H 71 H (9-20) mg/dL Creatinine 3.77 H 3.64 H (0.66-1.25) mg/dL Glucose 100 H 86 (74-99) mg/dL Calcium 8.0 L 7.5 L (8.4-10.2) mg/dL Adrenal panel 09/05/16 09/05/16 09/06/16 Range/Units 07:53 17:59 07:32 Sodium 135 L 135 L (137-145) mmol/L Potassium 5.8 H 5.4 H 5.6 H (3.5-5.1) mmol/L Chloride 104 106 (98-107) mmol/L Carbon Dioxide 18 L 17 L (22-30) mmol/L BUN 66 H 71 H (9-20) mg/dL Creatinine 3.77 H 3.64 H (0.66-1.25) mg/dL Glucose 100 H 86 (74-99) mg/dL Calcium 8.0 L 7.5 L (8.4-10.2) mg/dL Total Bilirubin 0.6 1.0 (0.2-1.3) mg/dL AST 24 17 (17-59) U/L ALT 21 21 (21-72) U/L Alkaline Phosphatase 107 95 (38-126) U/L Total Protein 7.0 6.7 (6.3-8.2) g/dL Albumin 2.8 L 2.6 L (3.5-5.0) g/dL - Imaging Chest x-ray: image reviewed CT scan - abdomen: image reviewed CT scan - chest: image reviewed EKG: image reviewed Assessment and Plan (1) History of atrial fibrillation Status: Acute (2) Coagulopathy Status: Acute (3) Generalized weakness Status: Acute (4) Mediastinal adenopathy Status: Acute (5) Anemia Status: Chronic Plan: Patient was seen and examined. Chart/diagnostics were reviewed. Patient is currently in no distress. Will discuss plan of care with cardiothoracic surgeon to determine appropriateness and timing of mediastinoscopy. All resulting pathology will need to be forwarded to the patient's own nitro man , Dr. Gomez. Thank you Dr. Lorenz the consult. We look forward to working with you in the care of your patient. Time with Patient: Greater than 30 <Dani Sarmiento - Last Filed: 09/07/16 16:09> Surgical - Exam Vital Signs Temp Pulse Resp BP Pulse Ox 96.9 F L 70 18 130/76 98 09/03/16 17:25 09/03/16 17:25 09/03/16 17:25 09/03/16 17:25 09/03/16 17:25 Results - Labs 09/06/16 07:32 09/07/16 08:07 Abnormal Lab Results - Last 24 Hours (Table) 09/06/16 09/06/16 09/06/16 Range/Units 07:32 15:26 18:13 PT (9.0-12.0) sec Sodium (137-145) mmol/L Potassium 5.3 H (3.5-5.1) mmol/L Chloride (98-107) mmol/L Carbon Dioxide (22-30) mmol/L BUN (9-20) mg/dL Creatinine (0.66-1.25) mg/dL Calcium (8.4-10.2) mg/dL U Random Total Protein 163 H (<12) mg/dL Free [place] LC, Quant 8.78 H (0.33 - 1.94) mg/dL Free Lambda LC, Quant 4.40 H (0.57 - 2.63) mg/dL Free [place]/Lambda Ratio 2.00 H (0.26 - 1.65) 09/07/16 09/07/16 Range/Units 08:07 08:07 PT 13.2 H (9.0-12.0) sec Sodium 136 L (137-145) mmol/L Potassium 5.2 H (3.5-5.1) mmol/L Chloride 108 H (98-107) mmol/L Carbon Dioxide 18 L (22-30) mmol/L BUN 68 H (9-20) mg/dL Creatinine 3.15 H (0.66-1.25) mg/dL Calcium 7.7 L (8.4-10.2) mg/dL U Random Total Protein (<12) mg/dL Free [place] LC, Quant (0.33 - 1.94) mg/dL Free Lambda LC, Quant (0.57 - 2.63) mg/dL Free [place]/Lambda Ratio (0.26 - 1.65) Diabetes panel 09/06/16 09/07/16 Range/Units 18:13 08:07 Sodium 136 L (137-145) mmol/L Potassium 5.3 H 5.2 H (3.5-5.1) mmol/L Chloride 108 H (98-107) mmol/L Carbon Dioxide 18 L (22-30) mmol/L BUN 68 H (9-20) mg/dL Creatinine 3.15 H (0.66-1.25) mg/dL Glucose 93 (74-99) mg/dL Calcium 7.7 L (8.4-10.2) mg/dL Calcium panel 09/07/16 Range/Units 08:07 Calcium 7.7 L (8.4-10.2) mg/dL Pituitary panel 09/06/16 09/07/16 Range/Units 18:13 08:07 Sodium 136 L (137-145) mmol/L Potassium 5.3 H 5.2 H (3.5-5.1) mmol/L Chloride 108 H (98-107) mmol/L Carbon Dioxide 18 L (22-30) mmol/L BUN 68 H (9-20) mg/dL Creatinine 3.15 H (0.66-1.25) mg/dL Glucose 93 (74-99) mg/dL Calcium 7.7 L (8.4-10.2) mg/dL Adrenal panel 09/06/16 09/07/16 Range/Units 18:13 08:07 Sodium 136 L (137-145) mmol/L Potassium 5.3 H 5.2 H (3.5-5.1) mmol/L Chloride 108 H (98-107) mmol/L Carbon Dioxide 18 L (22-30) mmol/L BUN 68 H (9-20) mg/dL Creatinine 3.15 H (0.66-1.25) mg/dL Glucose 93 (74-99) mg/dL Calcium 7.7 L (8.4-10.2) mg/dL Assessment and Plan Plan: The patient was seen and examined. His computed tomography scan performed at [facility] was reviewed. He appears to have mediastinal lymphadenopathy of unknown etiology. I do believe that these lymph nodes are amenable to biopsy via mediastinoscopy. We will therefore arrange for this to be performed in the operating room next week. He is cleared to be discharged home from my standpoint.
[2016-09-06 15:41] LABS: Appearance,Urine Cloudy (Clear); Bacteria,Urine Rare /hpf; Bilirubin,Urine Negative (Negative); Glucose,Urine (UA) Negative (Negative); Hyphae Yeast, Urine Rare /hpf; Ketones,Urine Negative (Negative); Leukocyte Esterase,Urine Trace (Negative); Mucus,Urine Rare /hpf; Nitrite,Urine Negative (Negative); PH, Urine 5.5 (5.0-8.0); Particle Count 6215; Protein,Urine 2+ (Negative); RBC,Urine 30 /hpf (0-5); Specific Gravity,Urine 1.009 (1.001-1.035); UA Billing (MACRO vs. MICRO) MICRO; Urobilinogen,Urine <2.0 mg/dL (<2.0); WBC,Urine 11 /hpf (0-5)
[2016-09-06] MEDS: DIGOXIN 125 MCG TAB PO SCH (21:24)
[2016-09-07 00:36] VITALS: RESP 16
[2016-09-07] MEDS: SODIUM CHLORIDE 0.9% 1,000 ML IV SCH (04:22)
[2016-09-07] MEDS: SODIUM BICARBONATE TAB 650 MG TAB PO SCH (08:38)
[2016-09-07] MEDS: PANTOPRAZOLE 40 MG TABLET PO SCH (08:38)
--- NOTE | 2016-09-07 08:47 | P.PN ---
Subjective Patient is seen in follow-up for acute kidney injury on chronic kidney disease. Patient has chronic kidney disease with unclear baseline renal function. His creatinine this week on Saturday was 2.4. 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 Patient is sitting up in bed. Denies any chest pain or shortness of breath. No vomiting or diarrhea. Admits to good urine output. Appetite is good. Vital signs are stable. General: The patient appeared well nourished and normally developed. HEENT: Head exam is unremarkable. Neck is without jugular venous distension. LUNGS: Lungs are clear to auscultation and percussion. Breath sounds decreased. HEART: Rate and Rhythm are regular. First and second heart sounds normal. No murmurs, rubs or gallops. ABDOMEN: Abdominal exam reveals normal bowel sounds. Non-tender and non- distended. No evidence of peritonitis. EXTREMITITES: No clubbing, cyanosis, or edema. Objective - Vital Signs Vital signs: Vital Signs Temp 100.2 F H 09/06/16 23:00 Pulse 67 09/06/16 23:00 Resp 16 09/07/16 00:05 BP 168/76 09/06/16 23:00 Pulse Ox 99 09/07/16 08:00 Intake & Output 09/06/16 09/07/16 09/07/16 18:59 06:59 18:59 Intake Total 1230 2060 Output Total 700 1300 Balance 530 760 Weight 108.862 kg Intake: Intake, IV Titration 550 400 Amount Sodium Acetate 50 meq In 250 Water For Injection, Sterile 250 ml @ 900 mls/ hr IV ONCE ONE Rx#: [id number] Sodium Chloride 0.9% 1, 300 400 000 ml @ 50 mls/hr IV . Q20H [facility] Rx#:[id number] Oral 680 1660 Output: Urine 700 1300 Other: Voiding Method Toilet Toilet # Voids 4 2 # Bowel Movements 1 - Labs CBC & Chem 7: 09/06/16 07:32 09/06/16 18:13 Labs: Abnormal Lab Results - Last 24 Hours (Table) 09/06/16 09/06/16 09/06/16 Range/Units 07:32 15:26 15:26 Potassium (3.5-5.1) mmol/L Urine Protein 2+ H (Negative) Urine Blood Moderate H (Negative) Ur Leukocyte Esterase Trace H (Negative) Urine RBC 30 H (0-5) /hpf Urine WBC 11 H (0-5) /hpf Urine Bacteria Rare H (None) /hpf Hyaline Casts 3 H (0-2) /lpf Urine Mucus Rare H (None) /hpf U Random Total Protein 163 H (<12) mg/dL Complement C3 <40 L (88-165) mg/dL Complement C4 <8 L (14-44) mg/dL 09/06/16 Range/Units 18:13 Potassium 5.3 H (3.5-5.1) mmol/L Urine Protein (Negative) Urine Blood (Negative) Ur Leukocyte Esterase (Negative) Urine RBC (0-5) /hpf Urine WBC (0-5) /hpf Urine Bacteria (None) /hpf Hyaline Casts (0-2) /lpf Urine Mucus (None) /hpf U Random Total Protein (<12) mg/dL Complement C3 (88-165) mg/dL Complement C4 (14-44) mg/dL Assessment and Plan Plan: Assessment: #1. Nonoliguric acute kidney injury mostly prerenal in nature secondary to poor oral intake. No evidence of hydronephrosis. Digoxin level normal. Proteinuria as well as blood present on urinalysis. Need to rule out GN - he does have 1.6 g of proteinuria along with low C3 and C4 levels. #2. Chronic kidney disease. Unclear as to what his baseline renal function is. His creatinine was 2.4 as of September 03. 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 #3. Mediastinal lymphadenopathy with pulmonary nodules. Questionable lymphoma. #4. Hyperkalemia secondary to acute kidney injury and metabolic acidosis. #5. Metabolic acidosis secondary to acute kidney injury. #6. Anemia. Iron replete. #7. History of atrial fibrillation. Rate controlled. Plan: Continue normal saline to be run at 50 mL an hour. Maintain renal diet. Maintain oral sodium bicarbonate 1300 mg twice daily. Follow-up rest of the serologic workup including Anka levels as well as serum free light chain analysis. Cardiothoracic surgery following regarding potential mediastinoscopy. I discussed with the patient the need for renal biopsy for definitive diagnosis for his renal impairment. Continue to monitor renal function and urine output and depending on his overall clinical status we will consider kidney biopsy soon.
[2016-09-07 08:51] VITALS: BP 132/65; PULSE 70; TEMP 98.1
[2016-09-07 08:58] LABS: INR 1.3 (<1.1); Prothrombin Time 13.2 sec (9.0-12.0)
[2016-09-07 09:15] LABS: Calcium 7.7 mg/dL (8.4-10.2); Potassium 5.2 mmol/L (3.5-5.1)
--- NOTE | 2016-09-07 11:10 | XR ---
EXAMINATION TYPE: XR chest 1V DATE OF EXAM: 09/07/2016 10:32 AM COMPARISON: 09/03/2016 INDICATION: Short of breath TECHNIQUE: Single frontal view of the chest is obtained. FINDINGS: The heart size is enlarged. The pulmonary vasculature is normal. The lungs are clear. Pacemaker overlies left chest. IMPRESSION: 1. No acute pulmonary process.
[2016-09-07 13:14] LABS: Free Kappa Lt Chain Qnt, Serum 8.78 mg/dL (0.33 - 1.94)
--- NOTE | 2016-09-07 14:29 | DS ---
DATE OF ADMISSION: 09/03/2016 DATE OF DISCHARGE: Patient is a 66-year-old admitted for generalized weakness and low-grade fevers. No signs or symptoms of infection were appreciated. Patient still had low-grade fever, secondary to lymphoma. Patient has myelodysplastic syndrome. Unfortunately, patient was unable to get biopsy tomorrow. Patient has atrial fibrillation, on Coumadin, is being held until his biopsy on August 21, biopsy of the mediastinal lymph nodes and patient also on the same day will get a kidney biopsy for evaluation of chronic kidney disease. Patient had CKD stage III to IV to start with which has worsened a little bit. Patient has prerenal azotemia, which improved with IV fluids. Patient will be encouraged to drink water and please refer to Nephrology's dictation for further details of etiology of kidney dysfunction. Patient ROBIN VASC score is around 1 just because of AGE factor. Because of the low risk. I do not believe patient needs to be bridged for Coumadin. Patient was seen and examined on the day of discharge. Vitals are stable. PHYSICAL EXAMINATION: GENERAL: The patient is alert and oriented x3, not in any acute distress. Well developed, well nourished. HEENT: Pupils are round and equally reacting to light. EOMI. No scleral icterus. No conjunctival pallor. Normocephalic, atraumatic. No pharyngeal erythema. No thyromegaly. CARDIOVASCULAR: S1 and S2 present. No murmurs, rubs, or gallops. PULMONARY: Chest is clear to auscultation, no wheezing or crackles. ABDOMEN: Soft, nontender, nondistended, normoactive bowel sounds. No palpable organomegaly. MUSCULOSKELETAL: No joint swelling or deformity. EXTREMITIES: No cyanosis, clubbing, or pedal edema. NEUROLOGICAL: Gross neurological examination did not reveal any focal deficits. SKIN: No rashes. FINAL DIAGNOSES: 1. Superior mediastinal lymphadenopathy secondary to lymphoma leading to low-grade fever and generalized tiredness and weakness. Patient was treated for possibility of urinary tract infection, although my suspicion is low for that. Patient is presently not on any antibiotics in spite of low-grade fevers. I asked the patient to check the temperatures at home. If it becomes high-grade, patient was asked to call the primary care physician on come back to ER. 2. History of myelodysplastic syndrome. 3. Atrial fibrillation, chronic and intermittent atrial fibrillation. 4. 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 5. Obesity. 6. Chronic kidney disease stage III to IV with acute renal failure secondary to prerenal azotemia with improved creatinine to 1.3. Patient will be discharged today. Please refer to my depart summary for the list of discharge medications. Patient will follow with Dr. Dionisio Lorenz on September 13 at 3:30, Dr. Erich James in 1 week and his primary care physician in 3 to 7 days and we are trying to get appointments for his mediastinal biopsy and kidney biopsy as an outpatient. Spent greater than 35 minutes in total discharge process.
[2016-09-10 15:39] LABS: C-ANCA <1:20 Titer (<1:20); P-ANCA <1:20 Titer (<1:20)
[2016-09-11] MEDS ORDERED: ceFAZolin 2 GM in SODIUM CHLORIDE 0.9% 100 ML IVPB ONE (06:00)
--- NOTE | 2016-09-21 07:33 | P.PN ---
Subjective Date of service 09/05/2016 Progress note being dictated for Dr. 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 Mediastinoscopy being discussed, pt NPO. Gentle IV fluid hydration initiated. Evaluated by nephrology related to worsening renal function, creatinine currently 3.8. Hyperkalemic, received amp D50 and regular insulin .underwent abdomen/pelvis CT yesterday, noted, reporting splenomegaly, no suspicious adenopathy to suggest neoplastic or lymphoma involvement below the diaphragm to correlate with recent outside chest CT. Denies chest pain, palpitations or increasing shortness of breath. Objective - Vital Signs Vital signs: Vital Signs Temp 97.6 F 09/05/16 15:00 Pulse 70 09/05/16 16:00 Resp 18 09/05/16 16:00 BP 128/77 09/05/16 15:00 Pulse Ox 96 09/05/16 15:00 Intake & Output 09/05/16 09/05/16 09/06/16 06:59 18:59 06:59 Intake Total 1580 200 Balance 1580 200 Weight 108.862 kg Intake: IV 180 Sodium Chloride 0.9% 1, 180 000 ml @ 20 mls/hr IV . Q24H ONE Rx#:[id number] Intake, IV Titration 200 Amount Sodium Chloride 0.9% 1, 200 000 ml @ 50 mls/hr IV . Q20H EVA Rx#:[id number] Oral 1400 Other: Voiding Method Toilet # Voids 1 3 - Exam PHYSICAL EXAM: VITAL SIGNS: [Temperature 97.8 ,Pulse 87, respiratory rate 16 blood pressure 129 or 76 O2 sat 98%] GENERAL: [Sitting up in bed, no acute distress] HEENT: [Pupils equal conjunctiva normal.] NECK: [Supple, no JVD] RESPIRATORY EFFORT:[ Normal] LUNGS: [Clear to auscultation, no wheezes rhonchi or crackles] CARDIOVASCULAR[ regular S1 and S2, no murmurs rubs or gallops, no edema] GI: [Abdomen soft, nontender, positive bowel sounds.] PSYCH: [Alert and oriented -3, mood and affect normal.] NEURO: [No focal deficits] - Labs CBC & Chem 7: 09/06/16 07:32 09/07/16 08:07 Labs: Abnormal Lab Results - Last 24 Hours (Table) 09/05/16 09/05/16 09/05/16 Range/Units 07:53 07:53 07:53 WBC 14.6 H (3.8-10.6) k/uL RBC 2.95 L (4.30-5.90) m/uL Hgb 8.2 L (13.0-17.5) gm/dL Hct 28.0 L (39.0-53.0) % MCHC 29.2 L (31.0-37.0) g/dL RDW 22.6 H (11.5-15.5) % Plt Count 496 H (150-450) k/uL Neutrophils # 13.3 H (1.3-7.7) k/uL Lymphocytes # 0.8 L (1.0-4.8) k/uL PT 26.3 H (9.0-12.0) sec Sodium 135 L (137-145) mmol/L Potassium 5.8 H (3.5-5.1) mmol/L Carbon Dioxide 18 L (22-30) mmol/L BUN 66 H (9-20) mg/dL Creatinine 3.77 H (0.66-1.25) mg/dL Glucose 100 H (74-99) mg/dL Calcium 8.0 L (8.4-10.2) mg/dL TIBC (261-462) ug/dL Albumin 2.8 L (3.5-5.0) g/dL 09/05/16 09/05/16 Range/Units 07:53 17:59 WBC (3.8-10.6) k/uL RBC (4.30-5.90) m/uL Hgb (13.0-17.5) gm/dL Hct (39.0-53.0) % MCHC (31.0-37.0) g/dL RDW (11.5-15.5) % Plt Count (150-450) k/uL Neutrophils # (1.3-7.7) k/uL Lymphocytes # (1.0-4.8) k/uL PT (9.0-12.0) sec Sodium (137-145) mmol/L Potassium 5.4 H (3.5-5.1) mmol/L Carbon Dioxide (22-30) mmol/L BUN (9-20) mg/dL Creatinine (0.66-1.25) mg/dL Glucose (74-99) mg/dL Calcium (8.4-10.2) mg/dL TIBC 234 L (261-462) ug/dL Albumin (3.5-5.0) g/dL Microbiology - Last 24 Hours (Table) 09/04/16 03:00 Urine Culture - Final Urine,Voided Assessment and Plan Plan: 1. Superior Mediastinal lymphadenopathy secondary to lymphoma remains low- grade fever, generalized tiredness and weakness]. 2. [ Possible acute UTI]. 3. [ History of myelodysplastic syndrome]. 4. [ Chronic proximal Atrial fibrillation,. 5. 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 6. [ Obesity, BMI 35.4]. 7. [ Acute renal failure secondary to prerenal azotemia 8. Chronic kidney disease stage III to IV 9. Hyperkalemia secondary to acute renal failure 10. Chronic anemia secondary to renal failure ]. Plan: Continue on current medication regime , oral sodium bicarb, monitoring and symptomatic treatment. Renal ultrasound pending. Cardiothoracic surgery consult in place, recommendations pending regarding mediastinoscopy; inpatient versus outpatient. Further recommendations to follow. Prognosis guarded given multiple complex medical issues. The impression and plan of care has been dictated as directed. : I performed a H&P examination of this patient and discussed the same with the dictator. I agree with the dictator's note. Any additional findings/opinions/ etc. will be noted.
--- NOTE | 2016-09-27 07:11 | P.PN ---
Subjective Date of service 09/06/2016 Progress note being dictated for Dr. 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 Previous CT had revealed significant increase in mediastinal lymphadenopathy .Evaluated by cardiothoracic surgery regarding mediastinal lymphadenopathy, outpatient mediastinoscopy with lymph node biopsy recommended . Chest x-ray nonacute. Receiving Xanax for anxiety. Diet intake improving. Creatinine 3.15, potassium 5.2. Renal ultrasound reporting no bilateral hydronephrosis. Denies chest pain, palpitations or increasing shortness of breath. Afebrile, T-max 100.2. Objective - Vital Signs Vital signs: Vital Signs Temp 98.1 F 09/07/16 07:00 Pulse 70 09/07/16 07:00 Resp 16 09/07/16 07:00 BP 132/65 09/07/16 07:00 Pulse Ox 99 09/07/16 08:00 - Exam PHYSICAL EXAM: VITAL SIGNS: [Temperature 97.1 ,Pulse 70, respiratory rate 16 blood pressure 132 /65, O2 sat 95 on RA] GENERAL: [Sitting up in bed, no acute distress] HEENT: [Pupils equal conjunctiva normal. Oral mucosa moist. No conjunctival pallor] NECK: [Supple, no JVD] RESPIRATORY EFFORT:[ Normal] LUNGS: [Clear to auscultation, bilateral diminished bases, no wheezes rhonchi or crackles] CARDIOVASCULAR[ regular S1 and S2, no murmurs rubs or gallops, no edema] GI: [Abdomen soft, nontender, positive bowel sounds. No guarding, no rigidity] PSYCH: [Alert and oriented -3, mildly anxious] NEURO: [No focal deficits] - Labs CBC & Chem 7: 09/06/16 07:32 09/07/16 08:07 Assessment and Plan Plan: 1. Superior Mediastinal lymphadenopathy secondary to lymphoma remains low-grade fever, generalized tiredness and weakness]. 2. Possible acute UTI 3. History of myelodysplastic syndrome 4. Chronic proximal Atrial fibrillation,. 5. 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 Obesity, BMI 35.4]. 7. Acute renal failure secondary to prerenal azotemia 8. Chronic kidney disease stage III to IV, 9. Hyperkalemia secondary to acute renal failure 10. Chronic anemia secondary to renal failure Plan: Continue on current medication regime , oral sodium bicarb, monitoring and symptomatic treatment. Cardiothoracic surgery recommending outpatient mediastinoscopy with biopsy as mentioned above. Coumadin on hold until after biopsy Maintained gentle IV fluid hydration. Encourage oral fluid intake. Renal biopsy being discussed as per nephrology. Further recommendations to follow. Prognosis guarded given multiple complex medical issues. Discharge planning in progress for tomorrow. The impression and plan of care has been dictated as directed. : I performed a H&P examination of this patient and discussed the same with the dictator. I agree with the dictator's note. Any additional findings/opinions/ etc. will be noted.
== END 2016-09-07 15:57 | disposition home or self-care (01) | DRG 841 ==
LOC: EC 17:21 → 5ONC 17:40
PROVIDERS: ADMIT Hospitalist; ATTEND Hospitalist
DX: C85.90 Non-Hodgkin lymphoma, unspecified, unspecified site (principal); E44.0 Moderate protein-calorie malnutrition; N17.9 Acute kidney failure, unspecified; E87.2 Acidosis; J84.10 Pulmonary fibrosis, unspecified; I48.2 Chronic atrial fibrillation; N18.4 Chronic kidney disease, stage 4 (severe); E87.5 Hyperkalemia; D46.9 Myelodysplastic syndrome, unspecified; N39.0 Urinary tract infection, site not specified; E66.9 Obesity, unspecified; D63.8 Anemia in other chronic diseases classified elsewhere; R79.1 Abnormal coagulation profile; T45.515A Adverse effect of anticoagulants, initial encounter; T46.0X5A Adverse effect of cardiac-stimulant glycosides and drugs of similar action, initial encounter; T46.2X5A Adverse effect of other antidysrhythmic drugs, initial encounter; Z68.35 Body mass index [BMI] 35.0-35.9, adult; Z79.01 Long term (current) use of anticoagulants; Z86.19 Personal history of other infectious and parasitic diseases; Z87.442 Personal history of urinary calculi; Z95.0 Presence of cardiac pacemaker
CPT/HCPCS: 71010; 74176; 76770; 80048; 80053; 80162; 81001; 82570; 82728; 83540; 83550; 83883; 84132; 84156; 84484; 85025; 85610; 85730; 86038; 86160; 86162; 86225; 86255; 86335; 87086; 87205; 94760

== ENCOUNTER 2016-09-11 07:48 | Day surgery (SDC) | payer MEDICARE ==
[2016-09-10 09:36] VITALS: BMI 35.4
[~2016-09-11 07:48] MED LIST: DEXAMETHASONE SOD PHOSPHATE 10 MG/ML 1 ML VIAL IV ONE; HYDROmorphone 1 MG/ML 1 ML SYRINGE IVP PRN; LACTATED RINGERS 1,000 ML IV SCH; MIDAZOLAM 2 MG/2 ML VIAL IV PRN; ONDANSETRON 4 MG/2 ML VIAL IVP ONE; Pre Op ABX Message 1 EACH MISC MISCELLANE ONE
[2016-09-11 08:27] VITALS: RESP 16
[2016-09-11] MEDS ORDERED: LIDOCAINE 1% 20 ML VIAL (10MG/ML) FOR IV START INTRADERMA ONE (08:37)
[2016-09-11 08:44] LABS: Anisocytosis Moderate; Basophils % (A) 0 %; CH 27.3; CHCM 29.7; Eosinophils # (A) 0.3 k/uL (0-0.7); Eosinophils % (A) 4 %; HCT 28.6 % (39.0-53.0); HDW 3.05; HGB 8.5 gm/dL (13.0-17.5); Hypochromasia Marked; Luc # (Auto) 0.26; Luc % (Auto) 3; Lymphocytes # (A) 1.3 k/uL (1.0-4.8); Lymphocytes % (A) 17 %; MCH 27.4 pg (25.0-35.0); MCHC 29.9 g/dL (31.0-37.0); MCV 91.7 fL (80.0-100.0); Macrocytosis Slight; Mean Platelet Volume 8.8; Microcytosis Slight; Monocytes # (A) 0.5 k/uL (0-1.0); Monocytes % (A) 7 %; Neutrophils # (A) 5.4 k/uL (1.3-7.7); Neutrophils % (A) 70 %; RBC 3.11 m/uL (4.30-5.90); WBC 7.8 k/uL (3.8-10.6); WBC (Perox) 7.39
[2016-09-11 08:48] LABS: INR 1.4 (<1.1); Prothrombin Time 13.5 sec (9.0-12.0)
[2016-09-11 08:49] LABS: Digoxin 0.7 ng/mL; Potassium 4.8 mmol/L (3.5-5.1)
[2016-09-11] MEDS ORDERED: PROPOFOL 10 MG/ML 20 ML VIAL IV ONE (09:13)
[2016-09-11] MEDS ORDERED: PHENYLEPHRINE-0.9% NACL SYG 1 MG/10 ML SYRINGE ONE (09:13)
[2016-09-11] MEDS ORDERED: LIDOCAINE 1% INJ 10MG/ML (20 ML MDV) ONE (09:13)
[2016-09-11] MEDS ORDERED: NEOSTIGMINE 1 MG/ML 10 ML VIAL ONE (09:13)
[2016-09-11] MEDS ORDERED: fentaNYL (PF) 50 MCG/ML 2 ML AMP ONE (09:13)
[2016-09-11] MEDS ORDERED: ROCURONIUM BROMIDE 10 MG/ML 10 ML VIAL IV ONE (09:13)
[2016-09-11] MEDS ORDERED: SUCCINYLCHOLINE CHLORIDE 100 MG/5 ML SYR IV ONE (09:13)
[2016-09-11] MEDS ORDERED: ePHEDrine 50 MG/ML 1 ML AMP ONE (09:13)
[2016-09-11] MEDS ORDERED: GLYCOPYRROLATE 0.2 MG/ML 2 ML VIAL ONE (09:13)
[2016-09-11] MEDS ORDERED: SODIUM CHLORIDE 0.9% 100 ML with ceFAZolin 2,000 MG IV ONE ×2 (09:40)
[2016-09-11] MEDS ORDERED: LACTATED RINGERS 1,000 ML IV ONE ×2 (10:50)
[2016-09-11 11:31] VITALS: TEMP 97.4
--- NOTE | 2016-09-11 12:06 | XR ---
EXAMINATION TYPE: XR chest 1V portable DATE OF EXAM: 09/11/2016 11:55 AM COMPARISON: Prior chest x-ray 07 Sep 2016 HISTORY: Status post mediastinoscopy TECHNIQUE: Single frontal view of the chest is obtained. FINDINGS: Prominent mediastinum is again noted. Patchy bandlike areas of increased attenuation are p resent centrally. There is no evident pneumothorax or pleural effusion. Pacemaker is stable. Heart re sanjana enlarged. There are overlying cardiac leads. IMPRESSION: No evident complication status post mediastinal procedure. There are areas of atelectasi s present.
[2016-09-11 13:16] VITALS: BP 146/87; PULSE 70
--- NOTE | 2016-09-11 23:47 | OP ---
DATE OF SERVICE: 09/11/2016 SURGEON: Dani Sarmiento MD BASIC COMBATANT SWIMMER: None. PREOPERATIVE DIAGNOSIS: Mediastinal lymphadenopathy. POSTOPERATIVE DIAGNOSIS: Mediastinal lymphadenopathy. OPERATION: Mediastinoscopy with lymph node biopsy. ANESTHESIA: General. ESTIMATED BLOOD LOSS: 50 mL SPECIMENS REMOVED: Mediastinal lymph node. COMPLICATIONS: None. INDICATION: The patient is a 66-year-old male with a history of myelodysplastic syndrome, hemochromatosis, pulmonary fibrosis and chronic atrial fibrillation who was admitted to the hospital with generalized weakness, fatigue and worsening shortness of breath. CT scan revealed significant increase in his mediastinal lymphadenopathy. Lymph node biopsy was recommended. The risks, benefits and alternatives to this procedure were discussed with the patient. All questions were answered. Consent was obtained. FINDINGS: Bulky, fleshy lymph nodes were biopsied from station 4R and sent to pathology. Frozen section was consistent with benign disease. PROCEDURE IN DETAIL: The patient was taken to the operating room and placed supine on the operating room table. After induction of general anesthesia, he was prepped and draped in the usual sterile fashion. A cervical collar incision was created approximately one fingerbreadth above the sternal notch. Dissection was taken down through the subcutaneous tissue. Superficial veins were ligated. Dissection was continued in the midline and the strap muscles were . The trachea was identified. The fascia just above the trachea was incised. Blunt dissection using a finger was used to create a tunnel anterior to the trachea beneath the sternal notch and beneath the innominate artery. The mediastinoscope was then inserted and the image was seen on the video screen. Dissection was performed bluntly in the right paratracheal space. Large fleshy lymph nodes were identified. Multiple biopsies were obtained. A sample was sent down for frozen section, with results revealing benign disease. Additional tissue was sent for permanent pathology as well as microbiology. Hemostasis was assured. The strap muscles were reapproximated. The remainder of the wound was closed in layers. A sterile dressing was applied. The patient appeared to tolerate the procedure well. There were no immediate complications. He returned to the recovery room in stable condition. [facility]
== END 2016-09-11 13:54 | disposition home or self-care (01) ==
LOC: OR 07:48
PROVIDERS: ATTEND Surgery
DX: L04.1 Acute lymphadenitis of trunk (principal); Z85.830 Personal history of malignant neoplasm of bone; I48.2 Chronic atrial fibrillation; N18.9 Chronic kidney disease, unspecified; Z79.01 Long term (current) use of anticoagulants; D50.0 Iron deficiency anemia secondary to blood loss (chronic); Z79.899 Other long term (current) drug therapy; Z88.8 Allergy status to other drugs, medicaments and biological substances
CPT/HCPCS: 39402; 86900; 86901; 88305; 80162; 84132; 85025; 85610; 86850; 88312; 88331; 87070; 87205; 87075; 87116; 87102; 87206; 71010; J1100; J2710; J2405; J2001; J3010; J1170; J0690; J2370; J0330; J2704